=== PATIENT | female | born 1995 | race Caucasian/White ===

== ENCOUNTER → 2018-05-23 09:20 | Outpatient (CLI) | payer OTHER, SELFPAY ==
[2018-05-23 10:44] LABS: Hemoglobin 12.8 g/dl (12.0-15.0); Mean Corpuscular Hgb 28.2 pg (27.0-32.0); Mean Corpuscular Volume 88.1 fL (81-99); Platelet Count 226 K/mm3 (150-450); RBC Distribution Width CV 11.8 % (11.6-14.6); RBC Distribution Width SD 37.9 fl (35.1-43.9); Red Blood Count 4.54 M/mm3 (4.2-5.4); White Blood Count 4.7 K/mm3 (4.4-11.0)
[2018-05-23 10:48] LABS: Scan Indicated on CBC? Y/N NO
[2018-05-23 11:03] LABS: hCG Titer Quant., Serum < 1 mIU/mL (<9 non-preg)
[2018-05-23 11:13] LABS: T4 Free Direct 1.29 ng/dL (0.76-1.46); Thyroid Stim Hormone (TSH) 1.38 uIU/mL (0.358-3.74)
[2018-05-23 12:29] LABS: Chlamydia Trachomatis by PCR Negative (Negative); Neisserai gonorrhoeae by PCR Negative (Negative); Probe Check PASS; Sample Adequacy Control PASS; Specimen Processing Control PASS
== END ==
PROVIDERS: Visit Provider Obstetrics & Gynecology
DX: Z11.3 Encounter for screening for infections with a predominantly sexual mode of transmission (principal); N92.5 Other specified irregular menstruation
CPT/HCPCS: 36415; 84439; 84443; 84702; 85027; 87491; 87591

== ENCOUNTER 2019-03-20 15:01 | Emergency (ER) | payer OTHER, SELFPAY ==
[2019-03-20 15:02] VITALS: BP 128/71; PULSE 77; RESP 18; TEMP 36.6; O2SAT 100; BMI 24.6
--- NOTE | 2019-03-20 15:24 | ED.DCSUM_ITS ---
- ER Visit Summary Date of Service: 03/20/19 Chief Complaint: Right ear pain History of Present Illness: The patient is a 23 F who presents with right ear pain that has been getting worse over the past week. Patient states pain became severe yesterday. Patient describes the pain as aching and burning. Patient states the pain is localized to the left ear. Patient admits to subjective fevers at home. Patient does admit to a sore throat. Patient also admits to some nausea and a headache but denies any vomiting. Patient denies any difficulty swallowing. Patient denies any hearing changes. Physical Examination: Vital signs are stable. Patient is afebrile. Patient is in no acute distress. Oral mucosa is pink and moist. Neck is supple. Trachea is midline. There is some mild tender anterior cervical lymphadenopathy noted. The left tympanic membrane was mildly erythematous. The right tympanic membrane is clear. Neck is supple. Trachea is midline. There is no JVD noted. Heart was regular rate and rhythm. Lungs are clear and equal bilateral. Cranial nerves II through XII are intact. There are no focal motor or sensory deficits noted. Emergency Department Course and Treatment: Patient was given a prescription for amoxicillin. Patient was instructed to continue Tylenol Motrin as needed for pain or fevers. Patient was instructed to follow-up with her primary care physician in 5 to 7 days. Patient understood and was agreeable with the plan. All questions were answered. Disposition: Discharge home Impression: Left acute otitis media This note was generated with [employer] dictation software. It may contain incorrect words, spelling, and punctuation that were not noted in review of the chart prior to signing ED Disposition - Plan for ED Patient: Disposition: Home or Assisted Living Diagnosis: Left acute otitis media Diagnosis: (Ruled Out): Right acute otitis media Instructions: ED Otitis Media Acute Adult Prescriptions: Amoxicillin 500 mg PO TID #30 tab Referrals: Martir Garcia [Primary Care Provider] - 5-7 Days
== END 2019-03-20 15:30 | disposition home or self-care (01) ==
PROVIDERS: Emergency Provider Emergency Medicine; Family Provider Internal Medicine; PCP Internal Medicine
DX: H66.92 Otitis media, unspecified, left ear (principal)
CPT/HCPCS: 99282

== ENCOUNTER → 2019-07-12 17:52 | Outpatient (CLI) | payer OTHER, SELFPAY | PROVIDERS: Family Provider Internal Medicine; PCP Internal Medicine; Referring Provider Obstetrics & Gynecology; Visit Provider Obstetrics & Gynecology | DX: Z12.4 Encounter for screening for malignant neoplasm of cervix (principal) ==

== ENCOUNTER → 2019-08-16 16:09 | Outpatient (CLI) | payer OTHER, SELFPAY ==
--- NOTE | 2019-08-16 | IMM_PTH ---
PATIENT: BENITO FLORES LOC: [facility] U#:[id number] AGE/SX: 30/F ROOM: RE08/16/[address]: Dr. Ashley Bass MD : 1995 BED: DIS: SPEC #: [id number] RECD: 08/20/19 15:11 STATUS: JEWELS REQ #: [id number] VEGA: 08/16/19 00:[address]: Ashley Bass DEPT: IMMUNOHISTOCHEMISTRY RECD BY: Karla Santana ENTERED: 08/20/19 15:12 SP TYPE: IMMUNO OTHR DR: Dr. Martir Garcia MD Tissues: A - Uterine cervix, NOS B - Endocervical Procedures: p16 (initial) KI-67 (add) PHYSICIAN & [place] [id number] SPECIMEN INFORMATION: Tissue Source: A - Cervical, B - ECC Clinical Info: High grade dysplasia Specimen Number: [id number] A & B CPT code: 25325 x2, 78458 x2 METHODOLOGY: Deparaffinized sections of prefer/formalin-fixed tissue or PAP/DQ stained slides are incubated with monoclonal/polyclonal antibodies/oligonucleotide probes. Localization is made via biotin free immunoperoxidase method. Appropriate controls are performed and reacted as expected. Results on target cell population are indicated in the following table: RESULTS: ANTIBODY / CLONE RESULT Block A P16 (E6H4) positive, block staining Ki-67 (30-9) positive, high Block B P16 (E6H4) noncontributory Ki-67 (30-9) noncontributory These tests were developed and their performance characteristics determined by [facility]. They may not have been cleared or approved by the U.S. Food and Drug Administration. The FDA has determined that such clearance or approval is not necessary. The above immunohistochemical/dualISH markers are ordered and reviewed by the Pathologist. INTERPRETATION: A. Cervical biopsy: Focal moderate to severe squamous dysplasia. B. ECC: A minute fragment of atypical metaplastic squamous epithelium. See comment. Comment: The fragment is not present in the IHC slides. JAME:yuko 08/21/19
--- NOTE | 2019-08-16 | CER_PTH ---
PATIENT: BENITO FLORES LOC: [facility] U#:[id number] AGE/SX: 30/F ROOM: RE08/16/[address]: Dr. Ashley Bass MD : 1995 BED: DIS: SPEC #: [id number] RECD: 08/16/19 15:52 STATUS: JEWELS RADHA #: [id number] VEGA: 08/16/19 00:[address]: Ashley Bass DEPT: SURGICAL PATHOLOGY RECD BY: Anny Rodriguez ENTERED: 08/18/19 16:54 SP TYPE: CERV OTHR DR: Dr. Martir Garcia MD Tissues: A - Uterine cervix, NOS B - Endocervical Procedures: Surgery Specimen Level IV HEADER OPERATION: Colposcopy PRE-OP DIAGNOSIS: R87.613 POST-OP DIAGNOSIS: High grade dysplasia TISSUE SUBMITTED: A. Cervical, B. ECC MICROSCOPIC DIAGNOSIS A. Cervical biopsy: Moderate to severe squamous dysplasia (HGSIL and ASIF II-III). Marked chronic inflammation. See comment. B. ECC: A minute fragment of atypical metaplastic squamous epithelium. Fragments of benign ecto- and endocervical epithelium, blood and mucous. See comment. SJ:rg 08/20/19 COMMENT A. Immunohistochemistry ([id number]) for surrogate HPV marker (p16) supports the above diagnosis. B. Immunohistochemistry ([id number]) is not contributory, the fragment is not present in the IHC slides. MICROSCOPIC DESCRIPTION Slides are reviewed. GROSS DESCRIPTION A - Received in fixative is one container labeled with the patient's name and designated cervical. The specimen consists of multiple irregular fragments of light wagner soft tissue that in aggregate measure 1.5 x 0.5 x 0.1 cm. The specimen is totally submitted in one cassette. B - Received in fixative is one container labeled with the patient's name and designated ECC. The specimen consists of multiple fragments of hemorrhagic mucoid tissue that in aggregate measure 2.5 x 1.5 x 0.1 cm. The specimen is totally submitted in one cassette. / JAME:yuko 08/19/19 TC:5 CPT: 52847 x2
== END ==
PROVIDERS: Family Provider Internal Medicine; PCP Internal Medicine; Referring Provider Obstetrics & Gynecology; Visit Provider Obstetrics & Gynecology
DX: R87.613 High grade squamous intraepithelial lesion on cytologic smear of cervix (HGSIL) (principal)
CPT/HCPCS: 88305; 88341; 88342

== ENCOUNTER 2019-09-09 10:29 | Day surgery (SDC) | payer OTHER, SELFPAY ==
--- NOTE | 2019-09-05 14:46 | HP.PCM_ITS ---
History and Physical Date of Admission: 09/09/19 HISTORY OF PRESENT ILLNESS: On 09/05/2019, Nunu Hartman, a 24 year old female 1 0 0 0 1, presented for: SURGICAL HISTORY AND PHYSICAL Nunu is being seen for pre op visit. Pt to have LEEP procedure done 09-09-[address] Bass. Pt had pap 06/2019 showed HGSIL and Colpo 07/2019 with moderate to severe squamous dysplasia. Medications and allergies are up to date. Consents signed and information given for surgery. AM As above. Nunu is here for preop appt. for LEEP. Pt had pap 06/2019 that showed HGSIL colposcopy 08/16/19 confirmed: Moderate to severe squamous dysplasia (HGSIL and ASIF II-III). Marked chronic inflammation. ECC: negative. EB ALLERGIES: NKDA MEDICATIONS HISTORY: Current medications prescribed by our practice are: 1. Sprintec (28) 0.25 mg-35 mcg tablet, 1 po daily REVIEW OF SYSTEMS: GENERAL - Denies fever, or chills SKIN - Denies skin changes EYES - Denies visual changes EARS - Denies difficulty hearing NOSE - Denies nasal congestion or bleeding MOUTH - Denies sore throat or difficulty swallowing NECK - Denies pain or swelling RESPIRATORY - Denies shortness of breath or wheezing CARDIOVASCULAR - Denies palpitations or chest pain GASTROINTESTINAL - Denies nausea, vomiting, diarrhea, constipation GENITOURINARY - Denies dysuria, frequency of urination, incontinence of urine MUSCULOSKELETAL - Denies joint or muscle pain NEUROLOGICAL - Denies localized numbness or weakness PSYCHIATRIC - Denies depression or anxiety ENDOCRINE - Denies heat or cold intolerance, weight loss or gain HEMATO-IMMUNOLOGIC - Denies excessive bleeding with cuts SURGICAL HISTORY: 1. none MENSTRUAL HISTORY: LMP Known?- Approximate-Month KnownAmount/Duration - 5-9, Regularity - Regular, Frequency - monthly days, LMP - 07/14/19, Age Onset Menarche - 12 FAMILY HISTORY: Mother - FH: Hypertension; MaternalGrandparent - FH: Hypertension; SOCIAL HISTORY: Alcohol Use - None Smoking - quit smoking, now chewing Diet - moderate, balanced diet and caffeine < 2 drinks per day Lifestyle - low stress lifestyle Exercise - walking Seat Belt Use - always Employer - [employer] Job Description - [place] Illicit Drug Use - denies use of street drugs Sexual Activity - same sexual partner as last year Hours Worked - 40+ Children Name(s) - Phil Control - Tati PHYSICAL EXAMINATION BP- 100/70 Sitting, Right arm, regular cuff Temp- 98.4 Taken Orally Weight- 155.40 lbs Height- 64.00 inch BMI:26.73 CONSTITUTIONAL - NAD, well nourished, and well developed SKIN - multiple tattoos and piercings HEENT - Normocephalic, PERRLA, EOMI NECK - no nuchal rigidity EXTREMITIES - No edema or calf tenderness NEUROLOGICAL - Cranial nerves II-XII grossly intact PSYCHIATRIC - A and O to time, place, person, mood and affect ASSESSMENT: 1. High Grade Squamous Intraepithelial Lesion On Cytologic Smear Of Cervix (hgsil) PLAN BY DIAGNOSIS: 1. High Grade Squamous Intraepithelial Lesion On Cytologic Smear Of Cervix (hgsil) HGSIL pap. Colposcopy confirms at least moderate dysplasia. ECC negative Plan LEEP in OR R,B,A reviewed as well as anticipated preop, operative and postop recovery including activity restrictions. RTO for pap in 4 mo after LEEP and plan pap q 4 mo for one year to confirm full resolution of the dysplasia. All questions answered to patient's satisfaction. Consents signed and on chart. The visit was approximately 20 minutes in length with most of the time spent in discussion and counseling.
[2019-09-09] VITALS (8 sets, daily range): BP systolic 101–122; BP diastolic 53–71; PULSE 80–85; RESP 15–16; TEMP 36.6–36.9; O2SAT 100; BMI 26.6
[2019-09-09 10:53] LABS: Internal QC Validated? YES +Cl - CLEAR BKGD
[2019-09-09 10:54] LABS: Pregnancy, Urine Negative Negative
[2019-09-09] MEDS: Lactated Ringers 1,000 ML 100 ML IV (11:02)
--- NOTE | 2019-09-09 12:15 | DCINST_ITS ---
Discharge Diet: No Restrictions Discharge Activity: May Shower, May Take a Tub Bath Return to work on:: 09/10/19 May resume sexual activity in: 2 weeks Weight Bearing Status: Weight bearing as tolerated Call your doctor if you observe: Fever of 101 or Higher, Using more than one pad per hour, Uncontrolled pain Additional Dressing/Incision Instructions:: Take two 500 mg Tylenol tab by mouth every 8 hrs as needed for pain. You may also take either two Aleve (220 mg tabs) OR three Ibuprofen 200 mg tab by mouth every 8 hr as needed for pain. Allergies/Adverse Reactions: Allergies No Known Allergies Allergy (Verified 09/09/19 10:49) Medications to take at Discharge Norgestimate-Ethinyl Estradiol [[place]-Linyah] 1 ea PO DAILY 09/05/19 Primary Care Physician: Care Physician,No Primary [Primary Care Provider] - Test Results: Test results from this visit will be discussed in further detail at your follow- up appointment, if applicable. Please Follow Up With: Ashley Bass MD - [phone] When: 2 wks for postop check up. Proposed Discharge Date: 09/09/19
[2019-09-09] MEDS: FERRIC SUBSULFATE 8 GM SOLN (12:40)
[2019-09-09] MEDS: Iodine/Potassium Iodide 14ML Bottle 1 DRP TOPICAL (12:40)
[2019-09-09] MEDS: Acetaminophen 500 MG Tablet 1000 MG PO (13:35)
--- NOTE | 2019-09-09 18:42 | PCM.OPRPT ---
Report of Operation Date of Procedure: 09/09/19 Pre-Operative Diagnosis: Moderate to severe cervical dysplasia. Post-Operative Diagnosis: Same Surgery/Procedure Performed:: LEEP Description of Surgical Findings:: Lugols nonstaining ectocervix noted. Type of Anesthesia:: MAC/Supplemental/Local Specimen's removed: LEEP biopsy , two pieces Drains: Sebastian joe prior to case Estimated Blood Loss (mL): 10 cc Fluids Replaced: LR Description of Procedure: After the risks, benefits, alternatives of the procedure were reviewed with the patient, informed consent was obtained. The patient was taken to the operating room with an IV running and placed in dorsal supine position on the operating table. She was given IV sedation, and then repositioned to the dorsal lithotomy position and was prepped and draped in the usual sterile fashion. A coated Graves speculum was placed, the cervix was identified and a 10 cc paracervical block of 1% lidocaine with 1:100,000 epinephrine was instilled at the 2:00 4:00 8:00 and 10:00 positions. Lugol's was applied to the cervix. A Lugol's nonstaining area was noted at the ectocervix. A loop electrical excision procedure was then performed at a power of 50/50 with a blend of 1 between cut and coag. The biopsy was performed in a two passes. Excellent hemostasis was noted. A ball cautery was then used to cauterize the margins of the cervix at the biopsy site. Monsel's was applied to the cervix. Excellent hemostasis was noted. A sponge stick was used to remove any remaining tissue and blood from the upper vagina and cervix. All instruments were then removed from the vagina. The patient was awakened from her IV sedation, and then transferred to her recovery room bed in stable condition after tolerating the procedure well. Sponge, instrument, and needle counts were correct x2. Medications given intraoperatively included: 10 cc of 1% lidocaine with 1:100,000 epinephrine as a paracervical block. For complete listing of medications given intraoperatively, please see the anesthesia record. - Complications None - Admit VTE Documentation VTE Present on Admission: No VTE Mechan Device Prophylaxis: SCD's VTE Pharm Prophylaxis ordered?: No
== END 2019-09-09 13:45 | disposition home or self-care (01) ==
LOC: SDC 10:29 → AC 10:32
PROVIDERS: Referring Provider Obstetrics & Gynecology
PROC: 0UBC7ZZ Excision of Cervix, Via Natural or Artificial Opening (ICD-10-PCS; CPT 57522; principal; 2019-09-09 12:15)
DX: D06.0 Carcinoma in situ of endocervix (principal); D64.9 Anemia, unspecified; F17.220 Nicotine dependence, chewing tobacco, uncomplicated
CPT/HCPCS: 00940; 57522; 81025; 88307; 88341; 88342; J7120; J2405

== ENCOUNTER → 2020-01-07 | Outpatient (CLI) | payer OTHER, SELFPAY ==
[2019-09-09 10:55] VITALS: BMI 26.6
[2020-01-13 11:55] LABS: HPV APTIMA, High Risk Negative (Negative)
== END | disposition home or self-care (01) ==
PROVIDERS: Referring Provider Obstetrics & Gynecology; Visit Provider Obstetrics & Gynecology
DX: R87.613 High grade squamous intraepithelial lesion on cytologic smear of cervix (HGSIL) (principal)
CPT/HCPCS: 87624; 88175; G0145

== ENCOUNTER → 2020-08-27 | Outpatient (CLI) | payer OTHER, SELFPAY ==
[2019-09-09 10:55] VITALS: BMI 26.6
[2020-09-02 14:06] LABS: HPV APTIMA, High Risk Negative (Negative); HPV Reflexed? YES, CHARGE PATIENT
== END | disposition home or self-care (01) ==
LOC: LABSPEC 08-28 08:59
PROVIDERS: Visit Provider Obstetrics & Gynecology
DX: Z12.4 Encounter for screening for malignant neoplasm of cervix (principal)
CPT/HCPCS: 87624; 88175; G0145

== ENCOUNTER 2022-01-13 13:14 | Outpatient (CLI) | payer BC, SELFPAY ==
[2022-01-13 14:06] LABS: Absolute Lymphocyte Count 2.01 X10^3/uL (0.83-4.51); Basophil# 0.04 X10^3/uL; Basophil% 0.6 % (0-1); Eosinophil# 0.36 X10^3/uL; Eosinophils% 5.3 % (0-5); Hematocrit 34.4 % (37-47); Hemoglobin 11.7 g/dL (12.0-15.0); Lymphocyte # 2.01 X10^3/ul (0.83-4.51); Lymphocyte % 29.5 % (19-41); Mean Corpuscular Hgb 29.8 pg (27.0-32.0); Mean Corpuscular Volume 87.8 fL (81-99); Monocyte# 0.44 X10^3/uL; Monocyte% 6.5 % (0-10); NRBC Flagged by Analyzer 0 % (0-5); Neutrophil # 3.95 X10^3/uL (2.7-7.7); Platelet Count 240 K/mm3 (150-450); RBC Distribution Width CV 11.7 % (11.6-14.6); RBC Distribution Width SD 37.6 fl (35.1-43.9); Red Blood Count 3.92 M/mm3 (4.2-5.4); White Blood Count 6.8 K/mm3 (4.4-11.0)
[2022-01-13 14:08] LABS: Color, Urine Yellow (Yellow); Glucose, Dipstick Normal (Normal); Ketone-Dipstick Negative (Negative); Leukocyte Esterase-Dipstick Negative /ul (Negative); Nitrite-Dipstick Negative (Negative); Occult Blood-Urine Negative /ul (Negative); Protein-Dipstick Negative (Negative); Specific Gravity, Urine 1.015 (1.002-1.030); Urine Bilirubin Dipstick Negative (Negative); Urine Clarity Sl. Cloudy (Clear); Urine Urobilinogen Normal (Normal); Urine pH 6.5 (5.0 - 8.0)
[2022-01-13 14:21] LABS: Amphetamine Urine VISTA NEGATIVE (<1000 ng/mL); Barbiturate Urine VISTA NEGATIVE (< 200 ng/mL); Benzodiazepine Urine VISTA NEGATIVE (< 200 ng/mL); Cocaine Urine VISTA NEGATIVE (< 300 ng/mL); Ecstacy Urine VISTA NEGATIVE (< 500 ng/mL); Methadone Urine VISTA NEGATIVE (< 300 ng/mL); PCP Urine VISTA NEGATIVE (< 25 ng/mL); THC Urine VISTA NEGATIVE (< 50 ng/mL); Vista UDS pH Range 6
[2022-01-13 14:30] LABS: Thyroid Stim Hormone (TSH) 1.28 uIU/mL (0.358-3.74)
[2022-01-13 14:55] LABS: HIV - WCH Non-Reactive (Nonreactive); Hepatitis B Surface Antigen Non-Reactive (Nonreactive); Hepatitis C Antibody Non-Reactive (Nonreactive); Rubella IgG Reactive (Nonreactive); Syphilis Antibodies Non-reactive
[2022-01-17 05:07] LABS: Chlamydia By Nucleic Acid AMP Negative (Negative)
[2022-01-17 13:31] LABS: Gonococcus By Nucleic Acid AMP Negative (Negative)
[2022-01-21 15:44] LABS: HPV APTIMA, High Risk Negative (Negative)
[2022-01-21 15:50] LABS: HPV Reflexed? YES, CHARGE PATIENT
== END 2022-01-13 23:59 | disposition home or self-care (01) ==
LOC: WOBLAB 13:15
PROVIDERS: Visit Provider Obstetrics & Gynecology
DX: Z34.81 Encounter for supervision of other normal pregnancy, first trimester (principal); Z12.4 Encounter for screening for malignant neoplasm of cervix; Z11.3 Encounter for screening for infections with a predominantly sexual mode of transmission
CPT/HCPCS: 36415; 80307; 81002; 84443; 85025; 86703; 86762; 86780; 86803; 87086; 87088; 87340; 87491; 87591; 87624; 88175; G0145

== ENCOUNTER → 2022-06-14 | Outpatient (CLI) | payer BC, SELFPAY ==
[2022-06-14 13:11] LABS: Absolute Lymphocyte Count 1.88 X10^3/uL (0.83-4.51); Absolute Neutrophil Count 4.4 X10^3/uL (2.0-7.7); Basophil# 0.04 X10^3/uL; Basophil% 0.6 % (0-1); Eosinophil# 0.46 X10^3/uL; Eosinophils% 6.4 % (0-5); Hematocrit 31.7 % (37-47); Hemoglobin 10.1 g/dL (12.0-15.0); Lymphocyte # 1.88 X10^3/ul (0.83-4.51); Lymphocyte % 26.2 % (19-41); Mean Corp Hgb Conc 31.9 g/dL (32-36); Mean Corpuscular Hgb 28.1 pg (27.0-32.0); Mean Corpuscular Volume 88.3 fL (81-99); Mean Platelet Vol. 10.4 fl (6.2-12.0); Monocyte# 0.42 X10^3/uL; Monocyte% 5.8 % (0-10); NRBC Flagged by Analyzer 0 % (0-5); Neutrophil # 4.36 X10^3/uL (2.7-7.7); Neutrophil % 60.7 % (47-70); Platelet Count 232 K/mm3 (150-450); RBC Distribution Width CV 11.8 % (11.6-14.6); RBC Distribution Width SD 37.9 fl (35.1-43.9); Red Blood Count 3.59 M/mm3 (4.2-5.4); White Blood Count 7.2 K/mm3 (4.4-11.0)
[2022-06-14 13:21] LABS: Glucose Challenge Gest 1H 50g 100 mg/dL (70-140)
== END | disposition home or self-care (01) ==
LOC: WOBLAB 08:59
PROVIDERS: Visit Provider Student in an Organized Health Care Education/Training Program
DX: Z34.83 Encounter for supervision of other normal pregnancy, third trimester (principal)
CPT/HCPCS: 36415; 82950; 85025

== ENCOUNTER → 2022-08-11 | Outpatient (CLI) | payer BC, SELFPAY | END | disposition home or self-care (01) | LOC: LABSPEC 15:30 | PROVIDERS: Visit Provider Obstetrics & Gynecology | DX: Z36.85 Encounter for antenatal screening for Streptococcus B (principal) | CPT/HCPCS: 87081 ==

== ENCOUNTER 2022-09-02 04:55 | Inpatient (IN) | payer BC, SELFPAY ==
[2022-09-02] VITALS (18 sets, daily range): BP systolic 93–124; BP diastolic 38–80; PULSE 73–93; RESP 16; TEMP 36–37.2; O2SAT 97–98; BMI 35.7
[2022-09-02] MEDS: Lactated Ringers 1,000 ML 999 ML IV (05:30)
[2022-09-02] MEDS: Acetaminophen 500 MG Tablet 1000 MG PO ×4 (05:38→22:58)
[2022-09-02 05:48] LABS: Absolute Lymphocyte Count 2.87 X10^3/uL (0.83-4.51); Absolute Neutrophil Count 5.1 X10^3/uL (2.0-7.7); Basophil# 0.04 X10^3/uL; Basophil% 0.4 % (0-1); Eosinophil# 0.48 X10^3/uL; Eosinophils% 5.2 % (0-5); Hematocrit 32.7 % (37-47); Hemoglobin 10.2 g/dL (12.0-15.0); Lymphocyte # 2.87 X10^3/ul (0.83-4.51); Lymphocyte % 31.4 % (19-41); Mean Corp Hgb Conc 31.2 g/dL (32-36); Mean Corpuscular Hgb 25.3 pg (27.0-32.0); Mean Corpuscular Volume 81.1 fL (81-99); Mean Platelet Vol. 11.2 fl (6.2-12.0); Monocyte# 0.65 X10^3/uL; Monocyte% 7.1 % (0-10); NRBC Flagged by Analyzer 0 % (0-5); Neutrophil # 5.07 X10^3/uL (2.7-7.7); Neutrophil % 55.5 % (47-70); Platelet Count 231 K/mm3 (150-450); RBC Distribution Width CV 13.9 % (11.6-14.6); RBC Distribution Width SD 40.4 fl (35.1-43.9); Red Blood Count 4.03 M/mm3 (4.2-5.4); White Blood Count 9.2 K/mm3 (4.4-11.0)
--- NOTE | 2022-09-02 06:31 | PCM.HP.BLA ---
History and Physical Date of Admission: 09/02/22 Chief complaint: Primary section breech History present illness: 27-year-old at 39 weeks and 5 days with KENNEDY 09/04/2022 arrives for primary section for breech. Denies headache, visual change, chest pain, shortness of breath, nausea vomit, right upper quadrant pain. Patient states good movement. Obstetric history: G1: 38 weeks 6 pounds 9 ounces male G2: Current Past medical history: None Medications: vitamin Past surgical history: [place] teeth extraction Allergies: No known drug allergies Family history: Denies history of VTE or PE Social history: Denies smoking, alcohol use, drug use Review of systems: Besides above pertinent positives a full review of systems was performed and found to be negative Physical exam: Vitals: Blood pressure 109/80 pulse 93 respiratory rate 16 temperature 98.2 ?F SPO2 98% on room air General: Normal-appearing no acute distress HEENT: Normocephalic atraumatic no cervical of adenopathy Cardiac/respiratory: No accessory muscles, nonlabored breathing Abdomen: Soft, nontender, gravid Extremities: No peripheral edema normal peripheral pulses Psych: Normal affect normal demeanor nonpressured speech Bedside ultrasound: Breech Assessment plan: 27-year-old at 39 weeks and 5 days for primary section for breech Admit labor and delivery CEFM 2 g Ancef Routine orders Anesthesia to see
[2022-09-02] MEDS: Lactated Ringers 1,000 ML 150 ML IV (06:34)
[2022-09-02] MEDS: Sodium Citrate/Citric Acid 30 ML UDC PO (06:55)
[2022-09-02] MEDS: Cefazolin 2 GM in 0.9% Normal Saline 100 ML IV (07:25)
--- NOTE | 2022-09-02 08:21 | EX.PCM.OBRPT ---
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 Patient with 4 to 5 cm anterior fundal fibroid otherwise normal uterus, tubes, ovaries Consent: Patient with breech presentation elects for primary low-transverse section Via Pfannenstiel incision. Patient understands the risk of the procedure include but are not limited to visceral or vascular injury, prolonged hospitalization, blood loss need for transfusion, reoperation. Patient state understanding wish to proceed. All questions were answered and consent was signed Procedure: Patient was perfected the OR where spinal anesthesia was found to be adequate. 2 g of Ancef were given for infection prophylaxis. Patient was prepared and draped in supine position with leftward tilt. A Pfannenstiel incision was made at the skin with a scalpel the incision was carried down to the fascia with a scalpel. The fascia was excised and extended laterally. Rectus muscle was dissected at the midline down to the level of the pubic symphysis. Preperitoneal fatty tissue was noted and peritoneum was entered bluntly. Peritoneum was extended superiorly and inferiorly with good visualization of bladder. Bladder blade was inserted and vesicouterine peritoneum was identified. Low transverse hysterotomy was made. Hand was placed in the incision and bladder blade was removed. Baby was delivered in standard breech fashion. Cord was clamped and cut. Baby was handed off to nursing. Placenta delivered via cord traction and fundal massage. IV oxytocin was initiated on to facilitate uterine contractions. Uterus was exteriorized and wiped out with dry laparotomy sponge in order to remove remaining placental membranes. Uterus was closed in a continuous running fashion. Ikehei-nh-gijsy's used for hemostasis. Good hemostasis was noted. Uterus was placed back in the abdominal cavity and good hemostasis was noted. Sariah was placed over the hysterotomy. Fascia was closed in continuous running fashion with PDS suture. Subcutaneous irrigation was performed. Good hemostasis was noted. Skin was closed in a subcuticular fashion. Good hemostasis was noted. All counts were correct x2. Patient tolerated procedure well and was brought to recovery in stable condition.
[2022-09-02] MEDS: Oxytocin 15 Units/NS 250ml 15 UNITS/250 ML IV.SOLN 83 UNITS IV (08:50)
[2022-09-02] MEDS: Ketorolac 30 MG/ML Syringe IV ×3 (09:21→21:16)
[2022-09-02] MEDS: Senna/Docusate Sodium 1 Tablet PO (12:05)
[2022-09-02] MEDS: Lactated Ringers 1,000 ML 100 ML IV (12:05)
--- NOTE | 2022-09-02 14:49 | NURSING ---
This RN took pt. Catheter out 10ml fluid pulled out of catheter pt tolerated well.
[2022-09-02] MEDS: 0.9% Saline Lock 10 ML Syringe IV ×2 (15:13→21:16)
[2022-09-02] MEDS: Enoxaparin 40 MG/0.4 ML Syringe SC (22:58)
[2022-09-03] MEDS: Ketorolac 30 MG/ML Syringe IV (03:05)
[2022-09-03] MEDS: 0.9% Saline Lock 10 ML Syringe IV (03:06)
[2022-09-03 03:20] VITALS: BP 107/71; PULSE 78; RESP 16; TEMP 36.6; O2SAT 96
--- NOTE | 2022-09-03 03:29 | NURSING ---
This RN assessed baby at 0315 while taking vitals. baby has red, blanching, macules and papules covering face and torso. This RN notes left eye appears to have mild discharge and crusting. baby unable to easily open left eye. Will notify water and fire technician in the am.
[2022-09-03] MEDS: Acetaminophen 500 MG Tablet 1000 MG PO ×2 (05:05→11:31)
[2022-09-03 05:20] LABS: Hematocrit 29.1 % (37-47); Hemoglobin 8.7 g/dL (12.0-15.0); Mean Corp Hgb Conc 29.9 g/dL (32-36); Mean Corpuscular Hgb 24.9 pg (27.0-32.0); Mean Corpuscular Volume 83.1 fL (81-99); Mean Platelet Vol. 10.7 fl (6.2-12.0); Platelet Count 196 K/mm3 (150-450); RBC Distribution Width SD 41.9 fl (35.1-43.9); White Blood Count 8.5 K/mm3 (4.4-11.0)
--- NOTE | 2022-09-03 06:57 | PN.OBGYN_ITS ---
Subjective Subjective Postop day 1. Pain controlled. Breast-feeding going well. Lochia minimal. Objective Data Objective Data Vital Signs: Vital Signs Temp Pulse Resp BP Pulse Ox O2 Del Method 98 F 78 16 107/71 96 Room Air 09/03/22 03:20 09/03/22 03:20 09/03/22 03:20 09/03/22 03:20 09/03/22 03:20 09/03/22 03:20 Oxygen Delivery Method Room Air Weight: 91.626 kg Body Mass Index (BMI) 35.7 Intake & Output: Intake and Output for Last 24 Hours 09/01/22 09/02/22 09/03/22 23:59 23:59 23:59 Intake Total 2412.5 / 2412.5 Output Total 1000 / 1000 Balance 1412.5 / 1412.5 Lab / Micro Data Result Diagrams: 09/03/22 05:13 Labs: Laboratory Results - last 24 hr 09/02/22 05:35: Blood Type A POSITIVE, Antibody Screen NEGATIVE 09/03/22 05:13: WBC 8.5, RBC 3.50 L, Hgb 8.7 L, Hct 29.1 L, MCV 83.1, MCH 24.9 L , MCHC 29.9 L, RDW Std Deviation 41.9, RDW Coeff of Ben 14.0, Plt Count 196, MPV 10.7 Micro: Microbiology 09/02/22 05:35 Nasal Secretion SARS-CoV-2 Antigen (Rapid) - Final Physical Exam Const alert, oriented x3 and no apparent distress HEENT normocephalic Head and Scalp: atraumatic Neck full ROM Resp normal respiratory effort Cardio regular rate GI normal to inspection, nondistended, normoactive bowel sounds GI Narrative: Uterus 2 cm below umbilicus, dressing clean and dry Back/Spine normal ROM Extremity normal to inspection Extremity Narrative: Minimal pedal edema Neuro no focal motor deficits and no sensory deficits noted Psych mental status grossly normal and affect normal Assessment & Plan (1) Delivery by section: PLAN: Postop day 1 status post primary section for breech presentation. Acute on chronic anemia secondary to surgical blood loss. Iron supplement on home-going. Pain controlled. Breast-feeding. Discharge home today. Follow-up 2 weeks postop visit and 6 weeks . (2) Acute postoperative pain:
--- NOTE | 2022-09-03 06:58 | DCINST_ITS ---
Discharge Instructions Diet Discharge Diet: No restrictions Activity Discharge Activity: Return to Normal Activity and May Shower May resume sexual activity in: 4-6 weeks Weight Bearing Status: Weight bearing as tolerated Lifting Restrictions: No greater than 25 pounds Dressing / Incision Call your doctor if your incision/area has: Continuous Slow Oozing, Increased Redness and Swelling at the incision site Call your doctor if you observe: Fever of 101 or Higher, Change in Color, Inability to urinate, Using more than 1 pad per hour, Shortness of breath, Dizziness, Swelling in the ankles, Chest pain and Calf discomfort Remove Dressing in: 1 week Cleanse incision/area with: Soap & Water and Keep Dressing Clean & Dry Follow Up Care Please Follow Up With: Marlene Gallegos DO When: 2-week post operative and 6-week visit Test Results: Test results from this visit will be discussed in further detail at your follow- up appointment, if applicable. Discharge Plan Admission Admit Date/Time: 09/02/22 04:55 Primary Reason for Your Visit: section Attending Provider: Rocco Gallegos Primary Care Provider: Jimena oLndon Primary Instructions Additional Instructions / Restrictions: Regular diet. No lifting over 25 pounds for 2 to 3 weeks. No intercourse for 4 to 6 weeks. Okay to shower. No tub baths for 2 weeks. Call if fevers, chills, chest pain, shortness of breath. Follow-up 2 weeks Discharge Orders/Prescriptions Prescriptions: New oxycodone 5 mg tablet 5 mg PO Q6H PRN (Reason: pain (scale score 7-10)) 4 Days Qty: 16 0RF Continued dezvuebn-eum-Tc-FA 1 mg Tablet 1 tab PO DAILY Referrals / Follow Up: Care PhysicianJimena Primary [Primary Care Provider] - Disposition Disposition (needs filled in before D/C Order can be placed): Home, Self Care
[2022-09-03 07:00] VITALS: BP 113/71; PULSE 75; RESP 18; TEMP 36.7; O2SAT 98
[2022-09-03] MEDS: Ibuprofen 600 MG Tablet PO (10:05)
[2022-09-03] MEDS: Enoxaparin 40 MG/0.4 ML Syringe SC (10:06)
[2022-09-03] MEDS: Senna/Docusate Sodium 1 Tablet PO (10:06)
== END 2022-09-03 13:00 | disposition home or self-care (01) | DRG 787 ==
PROVIDERS: Admitting Provider Obstetrics & Gynecology; Visit Provider Obstetrics & Gynecology
PROC: 10D00Z1 Extraction of Products of Conception, Low, Open Approach (ICD-10-PCS; CPT 59514; principal; 2022-09-02 07:15)
DX: O32.1XX0 Maternal care for breech presentation, not applicable or unspecified (principal); D62 Acute posthemorrhagic anemia; O90.81 Anemia of the puerperium; Z3A.39 39 weeks gestation of pregnancy; Z37.0 Single live birth
CPT/HCPCS: 59025; 59050; 85025; 85027; 86850; 86900; 86901; 87426; 99218; 99251; J7120; A4216; G0378; G0463

== ENCOUNTER 2024-09-02 10:17 | Emergency (ER) | payer BC, SELFPAY ==
[2024-09-02 10:18] VITALS: BP 116/82; PULSE 95; RESP 18; TEMP 35.9; O2SAT 100; BMI 30.8
--- NOTE | 2024-09-02 11:05 | EX.ED.VIS.UR ---
HPI HPI - URI History of Present Illness Chief Complaint: Sore Throat Informant: patient Narrative Narrative: Sore throat with odynophagia for 4 days now. She was seen at urgent care last night and had a negative strep test. No fevers, headaches, vomiting. No significant cough or congestion. Both of her ears hurt and hearing is a little muffled. No otorrhea. ROS ROS ED Constitutional Constitutional ED: Denies chills or fever(s) ENT ENT ED: Reports ear pain bilateral and sore throat; Denies nasal congestion or rhinorrhea Cardiovascular Cardiovascular: Denies chest pain or palpitations Respiratory/Chest Respiratory/Chest: Reports other Details: Minor nonproductive occasional cough ; Denies dyspnea or sputum Gastrointestinal Gastrointestinal: Denies abdominal pain, diarrhea, nausea or vomiting Genitourinary Genitourinary ED: Denies dysuria or hematuria Musculoskeletal Musculoskeletal: Denies myalgias or neck pain Integumentary Denies abscess or rash Neurologic Neurologic: Denies headache(s), paresthesias or weakness Psychiatric Psychiatric: Denies depression or suicidal thoughts Endocrine Endocrinology: Denies polydipsia or polyuria PFSH PFSH Medical History no medical history no medical history Home Medications ?Medication ?Instructions ?Recorded ?Last Taken ?Type oxycodone 5 mg tablet 5 mg PO Q6H PRN pain (scale score 09/02/22 Unknown Rx 7-10) 4 days #16 tabs [id number] 1 mg 1 tab PO DAILY 09/02/22 Unknown History tablet amoxicillin 500 mg tablet 500 mg PO TID #30 tabs 09/02/24 Unknown Rx Allergy/AdvReac Type Severity Reaction Status Date / Time No Known Allergies Allergy Verified 09/02/24 10:18 Surgical History Steger teeth removed Social History Smoking Status: Former smoker EXAM Physical Exam Const Vital Signs: 09/02/24 10:18 Temperature 96.6 F L Temperature Source Temporal Pulse Rate 95 Respiratory Rate 18 Blood Pressure 116/82 H Blood Pressure Mean 93 Pulse Ox 100 Oxygen Delivery Method Room Air Positive well nourished and well developed General Appearance ED: well developed and NAD HEENT Reports moist mucous membranes HEENT Narrative: No trismus. TMs normal bilaterally. EACs normal bilaterally. normocephalic and atraumatic Face and Sinus: Negative for sinus tenderness Throat: posterior oropharynx abnormal Positive for erythema and exudates (Bilateral tonsils without asymmetry or significant edema) Eyes PERRL and EOMs intact bilaterally Neck supple and no meningeal signs Neck Narrative: Anterior submandibular lymphadenopathy, no posterior lymphadenopathy. Resp normal respiratory effort Neuro oriented x3, CN's II-XII intact bilaterally and no sensory deficits noted Sensorium / Orientation: alert Motor Exam: strength 5/5 throughout Psych mental status grossly normal Skin Lesions: no lesions Rashes: no rashes MDM MDM MDM Narrative Medical decision making narrative: Patient with exudative pharyngitis this could be a streptococcal group B infection, viridans, or other bacterial etiology. I do not think she has mononucleosis. I think treatment empirically with antibiotics is reasonable even though it is not strep group A. Also giving her a dose of Decadron to help with pain and swelling, her airway is patent she does not have dysphonia, and she is comfortable with that overall plan. Discharge Plan Triage Chief Complaint: Sore Throat ED Provider: Janes Arce Dx/Rx/DC Orders Clinical Impression: Exudative tonsillitis Instructions: Tonsillitis in Adults Prescriptions: New amoxicillin 500 mg tablet 500 mg PO TID Qty: 30 0RF No Action [id number] 1 mg Tablet 1 tab PO DAILY oxycodone 5 mg tablet 5 mg PO Q6H PRN (Reason: pain (scale score 7-10)) 4 Days Qty: 16 0RF Primary Care Provider: Care Physician,No Primary Referrals: Doctor,Your [Non-Staff] - 1 Week if not improving Activity Restrictions/Additional Instructions: Viral causes are still in the realm of possibility, keep in mind that if this is the case antibiotics may not solve/cure. Print Language: Indonesian Disposition Disposition: Home, Self Care
[2024-09-02] MEDS: dexAMETHasone 4 MG Tablet 12 MG PO (11:25)
[2024-09-02 11:28] VITALS: BP 116/82; PULSE 95; RESP 18; TEMP 35.9; O2SAT 100
== END 2024-09-02 11:31 | disposition home or self-care (01) ==
PROVIDERS: Emergency Provider Emergency Medicine; Referring Provider Emergency Medicine; Visit Provider Emergency Medicine
DX: J03.80 Acute tonsillitis due to other specified organisms (principal); Z87.891 Personal history of nicotine dependence
CPT/HCPCS: 99282